=== PATIENT | male | born 1995 | race Caucasian/White ===

== ENCOUNTER 2024-01-02 08:39 | Emergency (ER) | payer OTHER, SELFPAY ==
[2024-01-02 08:41] VITALS: BP 119/78; PULSE 58; RESP 16; TEMP 36.4; O2SAT 98; BMI 31.6
[2024-01-02 08:44] VITALS: BP 119/78; PULSE 57; RESP 16; TEMP 36.4; O2SAT 98
--- NOTE | 2024-01-02 08:48 | ED.VIS.LOWEX ---
HPI History of Present Illness Chief Complaint: Lower Extremity Injury Informant: patient, spouse/S.O. and EMS Narrative Narrative: 28-year-old male presenting to the emergency room with left lower extremity injury. Patient was on an industrial planer when a piece of wood kicked back hit him in the left meier. He notes laceration and pain with movement of the toes. He notes his tetanus is up-to-date. He was given 50 mcg of fentanyl by EMS. Tetanus Immunization: <5 years [facility] Medical History Cardiac defibrillator in place Home Medications ?Medication ?Instructions ?Recorded ?Last Taken ?Type No Known/Unobtainable [No Known 01/03/15 Unknown History Home Medications] Allergy/AdvReac Type Severity Reaction Status Date / Time No Known Allergies Allergy Verified 01/03/15 19:35 Social History Smoking Status: Never smoker ROS ROS ED Constitutional Constitutional ED: Denies chills, fever(s) or weight loss Eyes Eyes: Denies change in vision or diplopia ENT ENT ED: Denies ear pain, rhinorrhea or sore throat Cardiovascular Cardiovascular: Denies chest pain, orthopnea, palpitations or racing heartbeat Respiratory/Chest Respiratory/Chest: Denies cough, dyspnea or orthopnea Gastrointestinal Gastrointestinal: Denies abdominal pain, diarrhea, nausea or vomiting Genitourinary Genitourinary ED: Denies dysuria, hematuria or urinary frequency Musculoskeletal Musculoskeletal: Reports other Details: See history of present illness ; Denies arthralgias or myalgias Integumentary Reports other Details: Left anterior leg laceration ; Denies abscess or rash Neurologic Neurologic: Denies headache(s), paresthesias or weakness Psychiatric Psychiatric: Denies anxiety, depression, suicidal ideation or suicidal thoughts Endocrine Endocrinology: Denies polydipsia, polyphagia or polyuria Allergic/Immunologic Allergic/Immunologic ED: Denies mouth swelling, tongue swelling or urticaria EXAM Physical Exam Const Vital Signs: 01/02/24 08:41 01/02/24 08:44 Temperature 97.6 F L 97.6 F L Temperature Source Oral Oral Pulse Rate 58 L 57 L Respiratory Rate 16 16 Blood Pressure 119/78 119/78 Blood Pressure Mean 91 91 Pulse Ox 98 98 Positive well nourished and well developed General Appearance ED: well developed and NAD HEENT Reports normocephalic, head/scalp atraumatic and moist mucous membranes Eyes PERRL and EOMs intact bilaterally Neck no lymphadenopathy, supple and no JVD Resp normal respiratory effort and clear to auscultation bilaterally Cardio regular rate, regular rhythm and no murmurs GI normal to inspection, nondistended, normoactive bowel sounds and non-tender Palpation: soft Back/Spine no CVA tenderness and normal ROM Extremity Extremity Narrative: There is a 3 cm vertical linear laceration in the mid left anterior meier. There is a associated contusion and hematoma noted. Neurovascular he appears intact distally. He is able to wiggle the toes but painful. He is able to lift his leg up off the bed. General Extremety ED: Negative for edema General Extremity: Negative for edema Neuro oriented x3 and CN's II-XII intact bilaterally Sensorium / Orientation: alert Motor Exam: strength 5/5 throughout Psych mental status grossly normal Mood & Affect: Negative for depressed or tearful Skin no rashes or lesions noted and no wounds MDM MDM MDM Narrative Medical decision making narrative: Differential diagnosis includes but not limited to fracture laceration hematoma muscular injury tendon injury neurovascular injury retained foreign body My independent interpretation of the plain films of the left tib-fib is no acute fracture. Wound was locally anesthetized using 1% lidocaine. Was washed with Shur-Clens irrigated and explored. No obvious foreign bodies were seen. The muscle belly was taken through its range of motion from what I can visualize I do not see any obvious injury to the muscle. Wound was closed using a total of 5 simple erupted 3-0 Ethilon sutures. Wound was dressed with bacitracin Telfa Марина and then Adrien wrap was applied over the mid meier and over the ankle to help limit range of motion. Wound care discussed with patient. Patient received Zofran and oxycodone here in the department. I can write him for a few oxycodone for home use. Patient understands return instructions History & Record Review Discussion w/independent historian: EMS personnel, Patient and Significant other Radiography Diagnostic Testing: Clinical Impression(s) from Imaging Studies Tibia/Fibula X-Ray 01/02/24 08:50 IMPRESSION: Soft tissue laceration. No radiopaque foreign body is seen. Electronically Signed: Alden Kathleen MD at 9:20 EST , Discharge Plan Triage Chief Complaint: Lower Extremity Injury ED Provider: Rayray Ramirez Dx/Rx/DC Orders Clinical Impression: Traumatic hematoma of lower leg, Laceration of left leg Instructions: ED Hematoma, ED Laceration, All Closures Prescriptions: No Action No Known Home Medications Primary Care Provider: Joey Mejía Referrals: Joey Mejía DO [Primary Care Provider] - 10 Day for suture removal Print Language: Faroese
--- NOTE | 2024-01-02 08:50 | RAD_ITS ---
STUDY: X-RAY - LEFT TIBIA AND FIBULA REASON FOR EXAM: Male, 28 years old. Laceration along the anterior aspect of the lower leg. TECHNIQUE: 4 view(s) of the tibia and fibula were obtained. COMPARISON: None. FINDINGS: Normal visualized tibia. Normal visualized fibula. Soft tissue injury overlying the midportion of the tibia. No radiopaque foreign body is seen. RAD/Tibia & Fibula 2 Views IMPRESSION: Soft tissue laceration. No radiopaque foreign body is seen. Electronically Signed: Alden Kathleen MD at 9:20 EST ,
[2024-01-02] MEDS: Lidocaine 1% (20 ml mdv) 20 ML Vial INFILT (09:02)
[2024-01-02] MEDS: oxyCODONE 5 MG Tablet 10 MG PO (09:11)
[2024-01-02] MEDS: Ondansetron ODT 4 MG Tablet PO (09:11)
[2024-01-02 09:41] VITALS: BP 125/70; PULSE 77; RESP 16; TEMP 36.6; O2SAT 99
== END 2024-01-02 09:42 | disposition home or self-care (01) ==
LOC: ED 09:35
PROVIDERS: Emergency Provider Emergency Medicine; PCP Family Medicine; Visit Provider Emergency Medicine
DX: S81.812A Laceration without foreign body, left lower leg, initial encounter (principal); S80.12XA Contusion of left lower leg, initial encounter; W22.8XXA Striking against or struck by other objects, initial encounter; Y92.89 Other specified places as the place of occurrence of the external cause
CPT/HCPCS: 12002; 73590; 99285; A4216